=== PATIENT | female | born 1950 | race African-American/Black ===

== ENCOUNTER 2017-10-09 08:37 | Outpatient (CLI) | payer MEDICARE, MEDICAID | END 2017-10-09 08:38 | disposition home or self-care (01) | LOC: BICULT 08:37 | PROVIDERS: ATTEND Internal Medicine | DX: R10.9 Unspecified abdominal pain (principal); K76.89 Other specified diseases of liver; Z90.49 Acquired absence of other specified parts of digestive tract | CPT/HCPCS: 76700 ==

== ENCOUNTER 2018-01-16 09:00 | Outpatient (CLI) | payer MEDICARE, MEDICAID ==
[2018-01-16 10:30] LABS: Estimated GFR-MDRD - POC Greater than 90
[2018-01-16] MEDS ORDERED: ISOVUE-370 76%-LOCM 1 ML ONE (12:13)
== END 2018-01-16 09:01 | disposition home or self-care (01) ==
LOC: BICCT 09:00
PROVIDERS: ATTEND Internal Medicine
DX: R10.11 Right upper quadrant pain (principal); N90.89 Other specified noninflammatory disorders of vulva and perineum; N63.20 Unspecified lump in the left breast, unspecified quadrant; M54.5 Low back pain; K76.0 Fatty (change of) liver, not elsewhere classified; J44.9 Chronic obstructive pulmonary disease, unspecified; E11.9 Type 2 diabetes mellitus without complications; I10 Essential (primary) hypertension; E78.5 Hyperlipidemia, unspecified; M19.90 Unspecified osteoarthritis, unspecified site
CPT/HCPCS: 74177; 82565

== ENCOUNTER 2018-02-19 08:27 | Outpatient (CLI) | payer MEDICARE, MEDICAID | END 2018-02-19 08:28 | disposition home or self-care (01) | LOC: BICMAMMO 08:27 | PROVIDERS: ATTEND Internal Medicine | DX: R92.8 Other abnormal and inconclusive findings on diagnostic imaging of breast (principal) | CPT/HCPCS: 76642; 77066; G0279 ==

== ENCOUNTER 2018-03-14 09:38 | Outpatient (CLI) | payer MEDICARE, MEDICAID | END 2018-03-14 09:39 | disposition home or self-care (01) | LOC: BICRAD 09:38 | PROVIDERS: ATTEND Internal Medicine | DX: M54.5 Low back pain (principal); M47.896 Other spondylosis, lumbar region | CPT/HCPCS: 72100 ==

== ENCOUNTER 2018-12-24 06:48 | Outpatient (CLI) | payer MEDICARE, MEDICAID ==
--- NOTE | 2018-12-24 07:37 | ULT ---
Pelvic sonogram transabdominal and transvaginal imaging. HISTORY: Pelvic pain and bloating. Prior hysterectomy. FINDINGS: Urinary bladder is unremarkable. Uterus is surgically absent. Ovaries not visualized and ma y be surgically absent also. No solid or cystic masses. No free fluid. IMPRESSION: Status post hysterectomy. No significant abnormalities are demonstrated.
== END 2018-12-24 06:49 | disposition home or self-care (01) ==
LOC: BICULT 06:48
PROVIDERS: ATTEND Advanced Practice Midwife
DX: B37.9 Candidiasis, unspecified (principal); Z90.710 Acquired absence of both cervix and uterus
CPT/HCPCS: 76856

== ENCOUNTER 2019-03-19 15:36 | Outpatient (CLI) | payer MEDICARE, MEDICAID ==
--- NOTE | 2019-03-19 16:01 | MMO ---
Bilateral MAMMO Bilat Screen [facility]. CLINICAL HISTORY: Patient is 68 years old and is seen for screening. The patient has no family history of breast cancer. The patient has no personal history of cancer. The patient has a history of left Excisional Biopsy in December, - benign. VIEWS: The views performed were: bilateral craniocaudal with tomosynthesis and bilateral mediolateral oblique with tomosynthesis. FILMS COMPARED: The present examination has been compared to prior imaging studies performed at [facility] on 01/26/2015, 01/31/2016, 02/06/2017 and 02/19/2018. MAMMOGRAM FINDINGS: There are scattered fibroglandular densities. There are no suspicious masses, suspicious calcifications, or new areas of architectural distortion. IMPRESSION: THERE IS NO MAMMOGRAPHIC EVIDENCE OF MALIGNANCY. A ROUTINE FOLLOW-UP MAMMOGRAM IN 1 YEAR IS RECOMMENDED. THE RESULTS OF THIS EXAM WERE SENT TO THE PATIENT. ACR BI-RADS Category 1 - Negative MAMMOGRAPHY NOTE: 1. A negative mammogram report should not delay a biopsy if a dominant of clinically suspicious mass is present. 2. Approximately 10% to 15% of breast cancers are not detected by mammography. 3. Adenosis and dense breasts may obscure an underlying neoplasm. Reported by: SARA GILLESPIE MD Electonically Signed: [id number]
== END 2019-03-19 15:37 | disposition home or self-care (01) ==
LOC: BICMAMMO 15:36
PROVIDERS: ATTEND Internal Medicine
DX: Z12.31 Encounter for screening mammogram for malignant neoplasm of breast (principal)
CPT/HCPCS: 77063; 77067

== ENCOUNTER 2019-06-16 06:30 | Inpatient (IN) | payer MEDICARE, MEDICAID ==
[2019-06-16 07:16] LABS: Hemoglobin 11.8 g/dL (12.0-16.0); Mean Corpuscular HGB CONC 32.8 g/dL (32.0-36.0); Mean Corpuscular Hemoglobin 27.7 pg (27.0-31.0); Mean Corpuscular Volume 84.7 fL (78.0-98.0); Mean Platelet Volume 9.3 fL (7.4-10.4); Platelet Count 243 thou/uL (130-400); RBC Distribution Width 14.2 % (11.5-14.5); Red Blood Cell (RBC) Count 4.24 mill/uL (4.20-5.40); White Blood Cell (WBC) Count 28.2 thou/uL (4.8-10.8)
[2019-06-16] MEDS ORDERED: methylPREDNISolone Sod Succ/PF 125 MG/2 ML VIAL ONE (07:16)
[2019-06-16 07:25] LABS: ALT (SGPT) 16 U/L (8-55); AST (SGOT) 17 U/L (5-34); Albumin 3.8 g/dL (3.4-4.8); Alkaline Phosphatase 106 U/L (40-110); Anion Gap 20 mmol/L (10-20); BUN (Urea Nitrogen) 17 mg/dL (9.8-20.1); Bilirubin, Total 0.6 mg/dL (0.2-1.2); CK (CPK) 62 U/L (29-168); Calc. Creatinine Clearance 0 mL/min (70-130); Calcium 9.3 mg/dL (7.8-10.44); Carbon Dioxide 16 mmol/L (23-31); Chloride 98 mmol/L (98-107); Estimated GFR-MDRD 51; Globulin 4.1 g/dL (2.4-3.5); Glucose 380 mg/dL (80-115); Potassium 5.1 mmol/L (3.5-5.1); Protein, Total 7.9 g/dL (6.0-8.3); Sodium 129 mmol/L (136-145)
[2019-06-16] MEDS ORDERED: Ondansetron PF 4 MG/2 ML Vial ONE (07:35)
[2019-06-16] MEDS ORDERED: Morphine 4 MG/ML VIAL ONE (07:35)
[2019-06-16 07:39] LABS: Band 31 % (5-11); Eosinophils 2 % (0-10); Lymphocytes 6 % (21-51); MDiff Complete? YES; Metamyelocyte 1 % (0-0); Monocytes 3 % (0-10); Neutrophil 57 % (42-75); Platelet Morphology Comment Appears Adequate; Polychromasia SLIGHT = 2-3 cells (100X) (0-2/hpf)
--- NOTE | 2019-06-16 07:51 | RAD ---
RADIOGRAPH CHEST 1 VIEW: DATE: 06/16/2019 TIME: 7:13 AM HISTORY: 68-year-old female with hemoptysis, chest pain, and dyspnea COMPARISON: 10/10/2016 FINDINGS: New finding of right perihilar ill-defined opacity and associated subsegmental atelectasis at right m idlung zone. No cardiomegaly, pulmonary edema, or pneumothorax. IMPRESSION: Right perihilar mass or infiltrate associated with adjacent subsegmental atelectasis.
--- NOTE | 2019-06-16 08:02 | CT ---
CT ANGIOGRAM THORAX WITH CONTRAST: (CTA pulmonary angiogram) DATE: 06/16/2019 HISTORY: 68-year-old female with dyspnea, hemoptysis, and chest pain TECHNIQUE: IV injection of iodinated contrast. Scan acquisition timing attempted to coincide with iodinated contrast bolus reaching maximal density in pulmonary arteries. 3-D MIP reconstructions. FINDINGS: There is a moderately large consolidation in the anterior segment of the right upper lobe. Its inferi or base broadly abuts the minor fissure, and the consolidation does not involve the right middle lobe. Medially, it broadly abuts the right anterior hilum and mediastinum. Anterolaterally, it abuts the pleural surface. There is air bronchogram. No pulmonary thromboembolism is identified, although images are somewhat degraded. No thoracic aortic aneurysm or dissection. No cardiomegaly, pulmonary e natalie, or pneumothorax. Diffusely low hepatic attenuation represents fatty liver. No adrenal nodule. No splenomegaly. No mediastinal lymphadenopathy. IMPRESSION: 1) consolidation in anterior segment of right upper lobe consistent with pneumonia. 2) no pulmonary thromboemboli was identified. 3) hepatic steatosis. 4) recommend serial follow-up chest radiographs until complete resolution, to rule out possibility of any occult hilar neoplasm that may be responsible for the consolidation.
[2019-06-16] MEDS ORDERED: cefTRIAXone\\ROCEPHIN 1 GM VIAL ONE (08:08)
[2019-06-16] MEDS ORDERED: Azithromycin 500 MG VIAL ONE (08:08)
--- NOTE | 2019-06-16 09:02 | PDOC.FPRHP ---
- History of Present Illness Chief Complaint: Chest pain and SOB History of Present Illness: This is a 68 yo female with a pmh of COPD, HTN, DM2, HLD who presents to the ER with a cc of chest pain, SOB, and cough. She states that her symptoms started Saturday night but worsened Saturday. She reports the chest pain as sharp and localized to the right side of her chest with no radiation. She reports movement makes the pain worse and she has been unable to sleep on her right side due to the pain. Her shortness of breath did not respond to her Duoneb at home or her inhaler. This SOB is worsened by exertion. In regards to her cough, she reports yellow sputum and blood tinged sputum. She reports associated dizziness, lightheadedness. She denies fever, chills, nausea, vomiting, or diarrhea. ED Course: 1L of NS hanging (total of three ordered) Azithromycin 500mg Rocephin 1g Methylprednisolone 125mg Duoneb Morphine 4 mg Zofran 4mg - Allergies/Adverse Reactions Allergies Allergy/AdvReac Type Severity Reaction Status Date / Time Penicillins Allergy passed out Verified 12/30/13 15:52 - Home Medications Medication Instructions Recorded Confirmed Type Aspirin [Ecotrin Low Strength] 81 mg PO DAILY 12/30/13 06/16/19 History Fish Oil/DHA/EPA [Fish Oil 1,200 1 cap PO DAILY 12/30/13 06/16/19 History mg Fish Oil] Lisinopril [Zestril] 2.5 mg PO BID 12/30/13 06/16/19 History Metoprolol Tartrate 1 tab PO BID 12/30/13 06/16/19 History Montelukast Sodium 10 mg PO HS 12/30/13 06/16/19 History Ventolin HFA Inhaler [Proventil 1 puff INH Q4HR PRN 12/30/13 06/16/19 History HFA Inhaler] metFORMIN [Glucophage] 500 mg PO BID-WM 12/30/13 06/16/19 History Pantoprazole [Protonix] 40 mg PO DAILY 06/16/19 06/16/19 History glipiZIDE [Glipizide] 10 mg PO DAILY 06/16/19 06/16/19 History - History PMHx:COPD, HTN, DM2, HLD, hx of tobacco abuse and alcohol abuse PSHx: Hysterectomy, cholesystecomy, colonoscopy 3 months ago, repeat in 3 years FHx: CAD Social: 55 pack year history of smoking, quit 6 years ago, long history of alcohol abuse, quit 10 years ago - Review of Systems General: reports: fatigue. denies: fever/chills, weight/appetite/sleep changes , night sweats Eyes: denies: eye pain, vision changes ENT: denies: nasal congestion, rhinorrhea Respiratory: reports: cough, shortness of breath, exercise intolerance Cardiovascular: reports: chest pain. denies: palpitation, edema Gastrointestinal: denies: nausea, vomiting, diarrhea, constipation, abdominal pain Skin: denies: rashes, lesions Musculoskeletal: reports: pain (ribs on right chest), tenderness Neurological: denies: numbness, syncope, seizure Psychological: denies: anxiety, depression - Vital signs BP: 149/60 HR: 123 RR: 22 Tmax: 98.9 Pox: 96% on ra Wt: 98.8 kg - Physical Exam Constitutional: NAD, awake, alert and oriented, well developed HEENT: normocephalic and atraumatic, PERRLA, EOMI, conjunctiva clear, no scleral icterus, grossly normal vision, grossly normal hearing -HEENT: dry mucus membranes, poor dentition Neck: FROM, trachea midline, other (tenderness to palpation on the right side at the base of the jaw) Chest: no lesions, other (tender to palpation over ribs 4-6 on the right) Heart: RRR, normal S1/S2, no murmurs/rubs/gallops, pulses present Lungs: other (Wheezing globally, rhonchi on the right) Abdomen: soft, non-tender, bowel sounds present, no masses/distention Musculoskeletal: normal structure, ROM grossly normal Neurological: no focal deficit, normal sensation Skin: no rash/lesions, good turgor, capillary refill <2 seconds Heme/Lymphatic: no unusual bruising or bleeding, no purpura Psychiatric: normal mood and affect, good judgment and insight, intact recent and remote memory FMR H&P: Results - Labs Result Diagrams: 06/16/19 06:57 06/16/19 06:57 Lab results: WBC 28.2 thou/uL (4.8-10.8) H 06/16/19 06:57 Hgb 11.8 g/dL (12.0-16.0) L 06/16/19 06:57 Hct 35.9 % (36.0-47.0) L 06/16/19 06:57 MCV 84.7 fL (78.0-98.0) 06/16/19 06:57 Plt Count 243 thou/uL (130-400) 06/16/19 06:57 Band Neuts % (Manual) 31 % (5-11) H 06/16/19 06:57 Sodium 129 mmol/L (136-145) L 06/16/19 06:57 Potassium 5.1 mmol/L (3.5-5.1) 06/16/19 06:57 Chloride 98 mmol/L (98-107) 06/16/19 06:57 Carbon Dioxide 16 mmol/L (23-31) L 06/16/19 06:57 BUN 17 mg/dL (9.8-20.1) 06/16/19 06:57 Creatinine 1.25 mg/dL (0.6-1.1) H 06/16/19 06:57 Glucose 380 mg/dL (80-115) H 06/16/19 06:57 Lactic Acid 5.2 mmol/L (0.5-2.2) H* 06/16/19 08:03 Calcium 9.3 mg/dL (7.8-10.44) 06/16/19 06:57 Total Bilirubin 0.6 mg/dL (0.2-1.2) 06/16/19 06:57 AST 17 U/L (5-34) 06/16/19 06:57 ALT 16 U/L (8-55) 06/16/19 06:57 Alkaline Phosphatase 106 U/L (40-110) 06/16/19 06:57 Creatine Kinase 62 U/L (29-168) 06/16/19 06:57 B-Natriuretic Peptide 84.1 pg/mL (0-100) 06/16/19 06:57 Serum Total Protein 7.9 g/dL (6.0-8.3) 06/16/19 06:57 Albumin 3.8 g/dL (3.4-4.8) 06/16/19 06:57 - EKG Interpretation EKG: Sinus tachycardia, no st elevation or depression - Radiology Interpretation Chest x-ray Status: image reviewed by me, report reviewed by me (Right perihilar mass or infiltrate associated with adjacent subsegmental atelectasis) CT scan - chest Status: image reviewed by me, report reviewed by me (1) consolidation in anterior segment of right upper lobe consistent with pneumonia. 2) no pulmonary thromboemboli was identified. 3) hepatic steatosis. 4) recommend serial follow-up chest radiographs until complete resolution, to rule out possibility of any occult hilar neoplasm that may be responsible for the consolidation.) FMR H&P: A/P - Problem List (1) CAP (community acquired pneumonia) Current Visit: Yes Status: Acute Code(s): J18.9 - PNEUMONIA, UNSPECIFIED ORGANISM (2) Sepsis Current Visit: Yes Status: Acute Code(s): A41.9 - SEPSIS, UNSPECIFIED ORGANISM (3) BEN (acute kidney injury) Current Visit: Yes Status: Acute Code(s): N17.9 - ACUTE KIDNEY FAILURE, UNSPECIFIED - Plan This is a 68 yo female with a pmh of HTN, HLD, DM2, COPD who present with cough , SOB, and chest pain Sepsis 2/2 CAP -S/P 3 L NS in er -Azithromycin/rocephin in ER -Pending procal Anion gap metabolic acidosis -Likely from dehydration and lactic acidemia -Pending beta hydroxybutyrate, not likely DKA as BG is 243 -Receiving fluid resuscitation currently Lactic acidosis -5.2 in ER -Pending repeat in 2 hours -fluid resuscitation as above BEN vs CKD -No history of kidney problems but no recent labs, will follow with AM BMP -IVF hydration as above Chest pain, likely costrocondritis -Tender to palpation, naproxen added -Troponin negative x1 -chest tenderness coincides with pneumonia, possible pleurisy COPD -No oxygen requirement at home, not on oxygen in ER -Continue home meds and duonebs in hospital -Steroids given in ER, continue for 5 days total HTN -Continue home meds DM2 -Continue home meds HLD Code: Full Prophylaxis: lovenox Family: none at bedside Fluids: NS 150 ml/hr Diet: CC 2000 Kcal Disposition: home in 2-3 days PCP: Dr. Shivam Padilla MD Addendum - Attending - Attending Attestation Date/Time: 06/16/19 [id number] I personally evaluated the patient and discussed the management with Dr. Petersen. I agree with the History, Examination, Assessment and Plan documented above with any addition or exceptions noted below. Patient here with cough, shortness of breath, and chest pain. Her CT scan shows pulmonary infiltrate consistent with PNA. She has elevated WBC with neutrophilia , lactic acidosis with increased AG metabolic acidosis, and BEN. She will be admitted for CAP treatment, IV fluid resuscitation and respiratory support. She also has hyperglycemia without evidence of DKA, currently only on Metformin and DE [place]. Will need escalation of therapy. Patient sees Dr. Shivam Padilla, for which we do not admit for. Patient will be transferred to hospitalist group as she is [facility] patient.
[2019-06-16 09:54] LABS: Legionella Urinary Ag Negative (Negative)
[2019-06-16 10:50] VITALS: BMI 36.5
[2019-06-16] MEDS ORDERED: Dextrose 50% Abboject 50 ML SYRINGE SLOW IVP PRN (10:51)
[2019-06-16] MEDS ORDERED: Naproxen 500 MG TAB PO PRN (10:51)
[2019-06-16] MEDS ORDERED: Acetaminophen 325 MG TAB PO PRN (10:51)
[2019-06-16] MEDS ORDERED: PROVENTIL INHALER 6.7 G (200 INHALATIONS) INH PRN (10:51)
[2019-06-16] MEDS ORDERED: Dextrose 5% in Water 1,000 ML IV PRN (10:51)
[2019-06-16] MEDS: HumaLOG 300 UNITS/3 ML VIAL SC PRN ×3 (11:14→21:19)
[2019-06-16] MEDS: Sodium Chloride 0.9% 1,000 ML IV SCH ×2 (11:14→17:18)
--- NOTE | 2019-06-16 15:58 | PDOC.EVN ---
Event Note - Event Note Event Note: Discussed case with Ramiro Villanueva PA-C at 1555. This patient's PCP is Shivam Padilla MD who works for [employer]. He accepts the patient.
[2019-06-16 16:02] LABS: Lactic Acid 5.9 mmol/L (0.5-2.2)
[2019-06-16] MEDS: methylPREDNISolone Sod Succ 40 MG VIAL IVP SCH (17:15)
[2019-06-16] MEDS: metFORMIN 500 MG TAB PO SCH (17:15)
[2019-06-16] MEDS ORDERED: HumaLOG 300 UNITS/3 ML VIAL SC PRN (18:13)
[2019-06-16] MEDS: Montelukast Sodium 10 mg Tablet PO SCH (20:43)
[2019-06-16] MEDS: Metoprolol Tartrate 25 MG TAB PO SCH (20:43)
[2019-06-16] MEDS: Lisinopril 2.5 MG TAB PO SCH (20:43)
--- NOTE | 2019-06-16 21:11 | CON ---
DATE OF CONSULTATION: 06/16/2019 HISTORY OF PRESENT ILLNESS: Ms. Sadler is a pleasant 68-year-old female. She says she has been feeling poorly for 2 weeks. She has a grandson who has been sick who just came to live with her recently. Over the weekend, she says she just became dramatically worse with cough, purulent sputum, hemoptysis, and pleuritic chest discomfort. She subsequently was admitted with hypotension and tachycardia. CT scanning of her chest shows a dense alveolar infiltrate in her right upper lobe. PAST MEDICAL HISTORY: 1. Remarkable for being told she has COPD in the past. She has never seen a pulmonary physician. 2. Diabetes. 3. Hypertension. 4. Status post hysterectomy. 5. History of cholecystectomy. 6. History of polypectomy. FAMILY HISTORY: Positive for vascular disease. SOCIAL HISTORY: She smoked over a pack a day for 55 years. She quit smoking 6 years ago. She said she just got tired of it. She quit drinking 10 years ago. REVIEW OF SYSTEMS: Ten points review of systems completed, otherwise negative. PHYSICAL EXAMINATION: GENERAL: She is tachycardic, but in no distress. VITAL SIGNS: Blood pressure this evening is 163/78, respiratory rate is in the high teens to low 20s. HEENT: Pupils are equal. Sclerae anicteric. NECK: Supple. No lymphadenopathy. LUNGS: Remarkable for not having any crackles that I can hear in her upper lobe. HEART: Regular rhythm. S1 and S2 are normal. ABDOMEN: Soft and nontender. EXTREMITIES: Without clubbing, cyanosis, or edema. NEURO: Grossly nonfocal. LABORATORY DATA: White count 28.2, hemoglobin 11.8, platelets 243. Sodium 129, potassium 5.1, chloride 98, bicarb 16, BUN 17, creatinine 1.25. IMPRESSION: 1. Community-acquired pneumonia, likely postviral, most likely streptococcal. 2. Clinical sepsis. 3. Metabolic acidosis with an increased anion gap. 4. Acute on chronic kidney disease. 5. Diabetes. 6. Hypertension. She should continue with volume resuscitation. I have increased her dose of Rocephin. I have switched her steroids from p.o. to IV for now. We can kaia blood sugars with sliding scale. I do not feel that she needs to move to the critical care unit at this point, as she surprisingly looks fairly comfortable in spite of her tachycardia and her metabolic acidosis. I will follow the other physicians caring for. TIME SPENT: This is a 70-minute consult, with greater than 50% of the time spent on the unit coordinating care. Job ID: [id number] [email or web address]
[2019-06-17] MEDS: Sodium Chloride 0.9% 1,000 ML IV SCH ×4 (00:03→17:04)
[2019-06-17] MEDS: methylPREDNISolone Sod Succ 40 MG VIAL IVP SCH ×5 (00:03→23:13)
[2019-06-17] MEDS ORDERED: Vancomycin HCl 1 GM in Premix Bag 1 BAG IVPB SCH (00:30)
[2019-06-17 06:26] LABS: Anion Gap 14 mmol/L (10-20); BUN (Urea Nitrogen) 19 mg/dL (9.8-20.1); Calc. Creatinine Clearance 79 mL/min (70-130); Calcium 9.2 mg/dL (7.8-10.44); Carbon Dioxide 20 mmol/L (23-31); Chloride 106 mmol/L (98-107); Estimated GFR-MDRD 62; Glucose 354 mg/dL (80-115); Potassium 5.1 mmol/L (3.5-5.1); Sodium 135 mmol/L (136-145)
[2019-06-17 06:41] LABS: Hemoglobin 10.9 g/dL (12.0-16.0); MDiff Complete? YES; Mean Corpuscular HGB CONC 32.9 g/dL (32.0-36.0); Mean Corpuscular Hemoglobin 28.1 pg (27.0-31.0); Mean Corpuscular Volume 85.3 fL (78.0-98.0); Mean Platelet Volume 9.2 fL (7.4-10.4); Platelet Count 226 thou/uL (130-400); RBC Distribution Width 14.3 % (11.5-14.5); Red Blood Cell (RBC) Count 3.87 mill/uL (4.20-5.40); White Blood Cell (WBC) Count 29.1 thou/uL (4.8-10.8)
[2019-06-17 06:42] LABS: Band 24 % (5-11); Eosinophils 1 % (0-10); Lymphocytes 3 % (21-51); Monocytes 2 % (0-10); Neutrophil 70 % (42-75)
[2019-06-17] MEDS ORDERED: predniSONE 20 MG TAB PO SCH (08:00)
[2019-06-17] MEDS ORDERED: cefTRIAXone\\ROCEPHIN 1 GM in Sodium Chloride 0.9% 100 ML IVPB SCH (08:00)
[2019-06-17] MEDS: Enoxaparin Sodium 40 MG/0.4 ML SYRINGE SC SCH (08:04)
[2019-06-17] MEDS: Aspirin 81 mg Enteric Coated Tablet PO SCH (08:04)
[2019-06-17] MEDS: Pantoprazole 40 MG GRANULES PACKET PO SCH (08:04)
[2019-06-17] MEDS: Azithromycin 250 MG TAB PO SCH (08:05)
[2019-06-17] MEDS: glipiZIDE 10 MG TAB PO SCH (08:05)
[2019-06-17] MEDS: metFORMIN 500 MG TAB PO SCH ×2 (08:05→17:05)
[2019-06-17] MEDS: Metoprolol Tartrate 25 MG TAB PO SCH ×2 (08:06→20:40)
[2019-06-17] MEDS: Lisinopril 2.5 MG TAB PO SCH ×2 (08:06→20:39)
[2019-06-17] MEDS: cefTRIAXone\\ROCEPHIN 2 GM in Sodium Chloride 0.9% 100 ML IVPB SCH (08:10)
[2019-06-17] MEDS: Fish Oil 1,000 MG CAP PO SCH (08:12)
[2019-06-17 08:52] LABS: INR-International Normal Ratio 1.3; Lactic Acid 1.4 mmol/L (0.5-2.2); PTT 30.6 SEC (22.9-36.1)
[2019-06-17 08:55] LABS: Magnesium 1.9 mg/dL (1.6-2.6); Phosphorus 2.5 mg/dL (2.3-4.7)
[2019-06-17 09:39] LABS: Hemoglobin A1c 9.8 % (4.0-6.0)
[2019-06-17] MEDS ORDERED: NPH, Human Insulin Isophane 300 UNIT/3 ML VIAL SC SCH ×2 (09:45→22:30)
[2019-06-17] MEDS: HumaLOG 300 UNITS/3 ML VIAL SC PRN ×3 (11:02→20:43)
[2019-06-17] MEDS ORDERED: Polyethylene Glycol 3350 17 GM Packet PO PRN (15:38)
[2019-06-17] MEDS: Senokot S 8.6-50 MG TAB PO SCH (20:40)
[2019-06-17] MEDS: Montelukast Sodium 10 mg Tablet PO SCH (20:40)
--- NOTE | 2019-06-17 22:29 | PDOC.HOSPP ---
- Subjective Encounter Date: 06/17/19 Encounter Time: 16:00 Subjective: Patient seen and examined for Sepsis. Feels better. Dry cough. No new complaints. No overnight events - Objective Vital Signs & Weight: Vital Signs (12 hours) Temp Pulse Resp BP BP Pulse Ox 06/17/19 20:39 98.1 F 98 20 156/81 H 156/81 H 96 06/17/19 20:00 96 06/17/19 19:43 98.1 F 06/17/19 15:25 97.2 F L 06/17/19 14:59 98 18 99 06/17/19 11:20 97.8 F Weight Weight 219 lb 5.759 oz Most Recent Monitor Data Heart Rate from ECG 102 NIBP 158/77 NIBP BP-Mean 104 Respiration from ECG 17 SpO2 95 I&O: 06/16/19 06/17/19 06/18/19 06:59 06:59 06:59 Intake Total 4231 2086 Output Total 2950 1500 Balance 1281 586 Result Diagrams: 06/17/19 05:26 06/17/19 05:26 Additional Labs: Accuchecks 06/17/19 06/17/19 06/17/19 20:03 16:41 06:27 POC Glucose 365 H 366 H 315 H 06/16/19 17:14 POC Glucose 407 H Radiology Reviewed by me: Yes (CTA - Right sided Pneumonia) EKG Reviewed by me: Yes (Tele SR) Hospitalist ROS - Review of Systems Cardiovascular: denies: chest pain, palpitations, orthopnea, paroxysmal noc. dyspnea, edema, light headedness, other Gastrointestinal: denies: nausea, vomiting, abdominal pain, diarrhea, constipation, melena, hematochezia, other - Medication Medications: Active Medications Generic Name Dose Route Start Last Admin Trade Name Freq PRN Reason Stop Dose Admin Albuterol/Ipratropium 3 ml 06/16/19 10:51 06/16/19 14:26 Duoneb NEB 3 ml [id number] PRN Administration SOB &/or Wheezing Aspirin 81 mg 06/17/19 09:00 06/17/19 08:04 Ecotrin PO 81 mg DAILY MYLES Administration Azithromycin 250 mg 06/17/19 09:00 06/17/19 08:05 Zithromax PO 06/21/19 09:01 250 mg DAILY MYLES Administration Enoxaparin Sodium 40 mg 06/17/19 09:00 06/17/19 08:04 Lovenox SC 40 mg 0900 MYLES Administration Fish Oil 1,000 mg 06/17/19 09:00 06/17/19 08:12 Fish Oil PO 1,000 mg DAILY MYLES Administration Glipizide 10 mg 06/17/19 09:00 06/17/19 08:05 Glucotrol PO 10 mg DAILY MYLES Administration Ceftriaxone Sodium 2 gm/ 100 mls @ 200 mls/hr 06/17/19 08:00 06/17/19 08:10 Sodium Chloride IVPB 100 mls 0800 MYLES Administration Sodium Chloride 1,000 mls @ 70 mls/hr 06/17/19 15:55 06/17/19 17:04 Normal Saline 0.9% IV 1,000 mls .[id number] MYLES Administration Insulin Human Lispro 0 units 06/16/19 10:51 06/17/19 20:43 Humalog SC 5 unit .BEDTIME SLIDING SC PRN Administration Bedtime Correctional Scale Insulin Human Lispro 0 units 06/17/19 07:56 06/17/19 17:07 Humalog SC 13 unit .AGGRESSIVE SLIDING PRN Administration Aggressive Correctional Scale Lisinopril 2.5 mg 06/16/19 21:00 06/17/19 20:39 Zestril PO 2.5 mg BID MYLES Administration Metformin HCl 500 mg 06/16/19 17:00 06/17/19 17:05 Glucophage PO 500 mg BID-WM MYLES Administration Methylprednisolone Sodium Succinate 20 mg 06/16/19 18:00 06/17/19 17:06 Solu-Medrol IVP 20 mg Q6HR MYLES Administration Metoprolol Tartrate 25 mg 06/16/19 21:00 06/17/19 20:40 Lopressor PO 25 mg BID MYLES Administration Montelukast Sodium 10 mg 06/16/19 21:00 06/17/19 20:40 Singulair PO 10 mg HS MYLES Administration Pantoprazole Sodium 40 mg 06/17/19 09:00 06/17/19 08:04 Protonix PO 40 mg DAILY MYLES Administration Senna/Docusate Sodium 1 tab 06/17/19 21:00 06/17/19 20:40 Senokot S PO 1 tab BID MYLES Administration Sodium Chloride 10 ml 06/17/19 09:00 06/17/19 20:40 Flush - Normal Saline IVF 10 ml Q12HR MYLES Administration - Exam General Appearance: NAD Neck: supple, no JVD Heart: RRR, no murmur, no gallops, no rubs Respiratory: normal chest expansion, no tachypnea, rales, rhonchi Gastrointestinal: soft, non-tender, non-distended, normal bowel sounds Extremities: no edema Neurological: no new deficit Psychiatric: normal affect, A&O x 3 Hosp A/P - Plan Severe Sepsis due to Strep Pneumonia with bacteremia Lactic acidosis DM2 with hyperglycemia due to steroids HTN BEN on CKD 2 Hyponatremia Obesity BMI 36.5 PLAN: Cont Ceftriaxone On IV Steroids Add NPH Cont sliding scale AM labs Transfer to medical Full code DPOA - family
[2019-06-18] MEDS: HumaLOG 300 UNITS/3 ML VIAL SC PRN ×5 (02:57→20:15)
[2019-06-18] MEDS: methylPREDNISolone Sod Succ 40 MG VIAL IVP SCH (05:14)
[2019-06-18] MEDS: Sodium Chloride 0.9% 1,000 ML IV SCH (05:15)
[2019-06-18 06:48] LABS: Hemoglobin 10.8 g/dL (12.0-16.0); Mean Corpuscular HGB CONC 32.4 g/dL (32.0-36.0); Mean Corpuscular Hemoglobin 27.5 pg (27.0-31.0); Platelet Count 256 thou/uL (130-400); RBC Distribution Width 14.3 % (11.5-14.5); Red Blood Cell (RBC) Count 3.93 mill/uL (4.20-5.40); White Blood Cell (WBC) Count 25.3 thou/uL (4.8-10.8)
[2019-06-18 07:07] LABS: ALT (SGPT) 14 U/L (8-55); AST (SGOT) 9 U/L (5-34); Albumin 3.4 g/dL (3.4-4.8); Alkaline Phosphatase 105 U/L (40-110); Anion Gap 13 mmol/L (10-20); BUN (Urea Nitrogen) 23 mg/dL (9.8-20.1); Bilirubin, Total 0.2 mg/dL (0.2-1.2); Calc. Creatinine Clearance 89 mL/min (70-130); Calcium 9.4 mg/dL (7.8-10.44); Carbon Dioxide 19 mmol/L (23-31); Chloride 106 mmol/L (98-107); Estimated GFR-MDRD 71; Globulin 3.9 g/dL (2.4-3.5); Glucose 305 mg/dL (80-115); Magnesium 1.9 mg/dL (1.6-2.6); Phosphorus 2.2 mg/dL (2.3-4.7); Potassium 4.6 mmol/L (3.5-5.1); Protein, Total 7.3 g/dL (6.0-8.3); Sodium 133 mmol/L (136-145)
[2019-06-18 07:48] LABS: Band 9 % (5-11); Lymphocytes 10 % (21-51); MDiff Complete? YES; Monocytes 5 % (0-10); Neutrophil 76 % (42-75); Polychromasia SLIGHT = 2-3 cells (100X) (0-2/hpf)
[2019-06-18] MEDS: Lisinopril 2.5 MG TAB PO SCH ×2 (08:52→20:12)
[2019-06-18] MEDS: Metoprolol Tartrate 25 MG TAB PO SCH ×2 (08:52→20:12)
[2019-06-18] MEDS: Azithromycin 250 MG TAB PO SCH (08:52)
[2019-06-18] MEDS: glipiZIDE 10 MG TAB PO SCH (08:52)
[2019-06-18] MEDS: Fish Oil 1,000 MG CAP PO SCH (08:52)
[2019-06-18] MEDS: metFORMIN 500 MG TAB PO SCH ×2 (08:52→17:19)
[2019-06-18] MEDS: Senokot S 8.6-50 MG TAB PO SCH ×2 (08:52→20:12)
[2019-06-18] MEDS: Aspirin 81 mg Enteric Coated Tablet PO SCH (08:52)
[2019-06-18] MEDS: Saccharomyces boulardii 250 MG CAP PO SCH (08:52)
[2019-06-18] MEDS: cefTRIAXone\\ROCEPHIN 2 GM in Sodium Chloride 0.9% 100 ML IVPB SCH (08:53)
[2019-06-18] MEDS: Pantoprazole 40 MG GRANULES PACKET PO SCH (08:54)
[2019-06-18] MEDS: Enoxaparin Sodium 40 MG/0.4 ML SYRINGE SC SCH (08:54)
[2019-06-18] MEDS ORDERED: NPH, Human Insulin Isophane 300 UNIT/3 ML VIAL SC SCH (09:00)
--- NOTE | 2019-06-18 09:44 | PRG ---
DATE OF SERVICE: 06/17/2019 SUBJECTIVE: Lissette Sadler said her pleuritic chest pain is better but not gone. Her hemodynamics have stabilized with blood pressure being in the 120s. OBJECTIVE: LUNGS: Clear. HEART: Regular rhythm. ABDOMEN: Soft. Blood cultures were positive for strep. IMPRESSION: Strep pneumonia with sepsis, clinically improving. She can be transferred to a medical bed in my opinion. Job ID: [id number]
--- NOTE | 2019-06-18 10:14 | PRG ---
DATE OF SERVICE: 06/18/2019 SUBJECTIVE: The patient is seen and examined at the bedside. She is feeling significantly better. She still has quite a bit of cough, but her appetite is fair, and she is able to get up and ambulate. OBJECTIVE: VITAL SIGNS: Blood pressure is 154/80, pulse is 91, temperature is 98.5, respirations 18, O2 saturation is 93% on room air. HEENT: Head is atraumatic and normocephalic. Eyes are PERRLA. Sclerae are nonicteric. Oral mucosa is moist. NECK: Supple. LUNGS: Few rales bilaterally. HEART: S1 and S2 are normal. ABDOMEN: Soft, nontender, and nondistended. EXTREMITIES: No clubbing, cyanosis, or edema. NEUROLOGIC: She is alert and oriented x4. There are no any motor or sensory deficits. LABORATORY DATA: Showed a white count of 25.3, hemoglobin 10.8, hematocrit 33.4, platelet count is 256,000. Sodium of 133, potassium 4.6, chloride 106, CO2 of 19, BUN 23, creatinine 0.94. Glycemia is ranging from 283 to 365. Phosphorus 2.2. Globulin 3.9. Microbiology, nothing new. IMPRESSION: 1. Severe sepsis due to Streptococcus pneumoniae with bacteremia. 2. Lactic acidosis. 3. Diabetes mellitus, type 2, worsened secondary to steroids. 4. Hypertension. 5. Acute kidney injury on chronic kidney disease, stage 2. 6. Hyponatremia. 7. Obesity. PLAN: We are going to continue her IV ceftriaxone. We are going to cut back on her steroids and switch her to prednisone. Long-acting insulin was added yesterday. We will check her white count tomorrow morning, and I anticipate the discharge in the next 24 to 48 hours. Job ID: [id number]
[2019-06-18] MEDS: NPH, Human Insulin Isophane 300 UNIT/3 ML VIAL SC SCH ×2 (11:00→20:13)
--- NOTE | 2019-06-18 14:04 | PRG ---
DATE OF SERVICE: 06/18/2019 SUBJECTIVE: Lissette Sadler says she is feeling better. Her pleurisy for all practical purposes are gone. OBJECTIVE: VITAL SIGNS: She is afebrile. Heart rate 92, respiratory rate 18, 02 sats 95% on room air, blood pressure 145/80. LUNGS: Clear. HEART: Regular rhythm. LABORATORY DATA: White count 25.3, sodium 133, potassium 4.6, chloride 106, bicarb 19, BUN 23, creatinine 0.94, glucose . IMPRESSION: 1. . 2. Leukocytosis secondary to pneumonia . Her Zithromax can be discontinued, especially since the organism is not sensitive to , steroid dosing can be simplified. 3. She can be taken off IV antibiotics and switched to a p.o. cephalosporin. 4. She may be discharged tomorrow. I will be happy to see her in followup and check a chest radiograph . Job ID: [id number]
[2019-06-18] MEDS: Montelukast Sodium 10 mg Tablet PO SCH (20:12)
[2019-06-19] MEDS: HumaLOG 300 UNITS/3 ML VIAL SC PRN ×4 (05:53→20:30)
[2019-06-19] MEDS: Saccharomyces boulardii 250 MG CAP PO SCH (08:26)
[2019-06-19] MEDS: Metoprolol Tartrate 25 MG TAB PO SCH ×2 (08:27→20:28)
[2019-06-19] MEDS: glipiZIDE 10 MG TAB PO SCH (08:27)
[2019-06-19] MEDS: predniSONE 20 MG TAB PO SCH (08:27)
[2019-06-19] MEDS: Lisinopril 2.5 MG TAB PO SCH ×2 (08:27→20:28)
[2019-06-19] MEDS: Fish Oil 1,000 MG CAP PO SCH (08:27)
[2019-06-19] MEDS: Aspirin 81 mg Enteric Coated Tablet PO SCH (08:27)
[2019-06-19] MEDS: metFORMIN 500 MG TAB PO SCH ×2 (08:27→17:58)
[2019-06-19] MEDS: NPH, Human Insulin Isophane 300 UNIT/3 ML VIAL SC SCH ×2 (08:29→20:29)
[2019-06-19] MEDS: Enoxaparin Sodium 40 MG/0.4 ML SYRINGE SC SCH (08:29)
[2019-06-19] MEDS: Pantoprazole 40 MG GRANULES PACKET PO SCH (08:30)
[2019-06-19] MEDS: Senokot S 8.6-50 MG TAB PO SCH ×2 (08:30→20:29)
[2019-06-19 09:17] LABS: Hemoglobin 12.8 g/dL (12.0-16.0); Mean Corpuscular HGB CONC 32.5 g/dL (32.0-36.0); Mean Corpuscular Hemoglobin 27.6 pg (27.0-31.0); Mean Corpuscular Volume 84.7 fL (78.0-98.0); Mean Platelet Volume 9.4 fL (7.4-10.4); Platelet Count 264 thou/uL (130-400); RBC Distribution Width 14.3 % (11.5-14.5); Red Blood Cell (RBC) Count 4.64 mill/uL (4.20-5.40); White Blood Cell (WBC) Count 18.4 thou/uL (4.8-10.8)
[2019-06-19] MEDS: Cefdinir 300 MG CAP PO SCH ×2 (09:25→20:28)
--- NOTE | 2019-06-19 09:38 | PRG ---
DATE OF SERVICE: 06/19/2019 SUBJECTIVE: Lissette Sadler is feeling well. OBJECTIVE: VITAL SIGNS: She is on room air now. Oximetry is in the low to mid 90s on room air. She is afebrile. Heart rate is 99 and blood pressure 139/85. LUNGS: Clear. HEART: Regular rhythm. ABDOMEN: Soft. IMPRESSION: Pneumonia with bacteremia, secondary to streptococcal pneumonia. PLAN: Switch to Omnicef. Discharge home with 14 days total of antibiotics. She will follow up with me in 1 month for chest radiograph. Job ID: [id number]
[2019-06-19 09:45] LABS: Band 4 % (5-11); Eosinophils 2 % (0-10); Lymphocytes 36 % (21-51); MDiff Complete? YES; Metamyelocyte 1 % (0-0); Monocytes 4 % (0-10); Neutrophil 53 % (42-75); RBC Morphology Normal
--- NOTE | 2019-06-19 12:46 | PRG ---
DATE OF SERVICE: 06/19/2019 SUBJECTIVE: The patient is seen and examined at the bedside. She feels better. She tolerates food. She started having some productive cough. OBJECTIVE: VITAL SIGNS: Blood pressure is 150/84, pulse 99, temperature is 97.8, respirations 20, and O2 saturation is 92% on room air. HEENT: Head is atraumatic and normocephalic. Eyes are PERRLA. Sclerae are nonicteric. Oral mucosa is moist. NECK: Supple. LUNGS: Few rales bilaterally at both bases. HEART: S1 and S2 normal. ABDOMEN: Soft and nontender. EXTREMITIES: No clubbing, cyanosis, or edema. NEUROLOGIC: Intact. LABORATORY DATA: White count of 18.4, hemoglobin 12.8, hematocrit 39.3, platelet count 264,000. Glycemia is ranging from 157 to 293. IMPRESSION: 1. Severe sepsis due to streptococcal pneumonia with streptococcal bacteremia. 2. Lactic acidosis, resolved. 3. Diabetes mellitus type 2, worsen secondary to steroids. 4. Hypertension. 5. Acute kidney injury on chronic kidney disease, stage 2. 6. Hyponatremia, improved. 7. Obesity. PLAN: Plan to give her a less prednisone today. She had first dose of 40 mg. She was seen by wharf labourer, who recommends follow up with him and x-ray prior to the followup visit. I think her white count is still elevated at 18,000 with 2/2 blood cultures positive. I think it is more appropriate to keep her additional 24 hours and then discharge her on oral Augmentin twice a day for 2 weeks. Job ID: [id number]
[2019-06-19] MEDS: cefTRIAXone\\ROCEPHIN 2 GM in Sodium Chloride 0.9% 100 ML IVPB SCH (19:06)
[2019-06-19] MEDS: Montelukast Sodium 10 mg Tablet PO SCH (20:29)
[2019-06-20 06:27] LABS: Band 3 % (5-11); Hemoglobin 11.5 g/dL (12.0-16.0); Lymphocytes 41 % (21-51); MDiff Complete? YES; Mean Corpuscular HGB CONC 32.7 g/dL (32.0-36.0); Mean Corpuscular Hemoglobin 27.3 pg (27.0-31.0); Mean Corpuscular Volume 83.5 fL (78.0-98.0); Mean Platelet Volume 8.8 fL (7.4-10.4); Metamyelocyte 2 % (0-0); Monocytes 13 % (0-10); Myelocyte 1 % (0-0); Neutrophil 40 % (42-75); Nucleated RBC 1 % (0); Platelet Count 287 thou/uL (130-400); Platelet Morphology Comment Appears Adequate; RBC Distribution Width 13.9 % (11.5-14.5); RBC Morphology Normal; Red Blood Cell (RBC) Count 4.21 mill/uL (4.20-5.40); White Blood Cell (WBC) Count 18.7 thou/uL (4.8-10.8)
[2019-06-20 08:13] VITALS: BP 154/80; TEMP 98.4
[2019-06-20] MEDS: Cefdinir 300 MG CAP PO SCH (08:19)
[2019-06-20] MEDS: Lisinopril 2.5 MG TAB PO SCH (08:19)
[2019-06-20] MEDS: Aspirin 81 mg Enteric Coated Tablet PO SCH (08:19)
[2019-06-20] MEDS: glipiZIDE 10 MG TAB PO SCH (08:19)
[2019-06-20] MEDS: metFORMIN 500 MG TAB PO SCH (08:20)
[2019-06-20] MEDS: Fish Oil 1,000 MG CAP PO SCH (08:20)
[2019-06-20] MEDS: Enoxaparin Sodium 40 MG/0.4 ML SYRINGE SC SCH (08:20)
[2019-06-20] MEDS: NPH, Human Insulin Isophane 300 UNIT/3 ML VIAL SC SCH (08:20)
[2019-06-20] MEDS: Senokot S 8.6-50 MG TAB PO SCH (08:20)
[2019-06-20] MEDS: predniSONE 20 MG TAB PO SCH (08:20)
[2019-06-20] MEDS: Saccharomyces boulardii 250 MG CAP PO SCH (08:20)
[2019-06-20] MEDS: Pantoprazole 40 MG GRANULES PACKET PO SCH (08:20)
[2019-06-20] MEDS: Metoprolol Tartrate 25 MG TAB PO SCH (08:20)
--- NOTE | 2019-06-20 09:53 | DIS ---
DATE OF ADMISSION: 06/16/2019 DATE OF DISCHARGE: 06/20/2019 FINAL DIAGNOSES AT THE TIME OF DISCHARGE: 1. Severe sepsis due to Streptococcal pneumonia with Streptococcal bacteremia. 2. Streptococcal bacteremia. 3. Streptococcal pneumonia. 4. Lactic acidosis, resolved. 5. Diabetes mellitus type 2, worsening on steroids. 6. Hypertension. 7. Acute kidney injury on chronic kidney disease stage 2, improved. 8. Hyponatremia, improved. 9. Obesity. CONSULTANTS: Dr. David Freire, Pulmonary Service. HOSPITAL COURSE: The patient was a 68-year-old female with past medical history of COPD, hypertension, diabetes mellitus type 2, hyperlipidemia, who presented to the ER with acute onset of chest pain, shortness of breath and cough. This gradually got worse and her shortness of breath did not respond to her DuoNebs at home and inhaler. She had productive yellow sputum, cough with blood tinged sputum. She reported some dizziness, lightheadedness. She denied any fever, chills, nausea, vomiting, or diarrhea. In the emergency room, evaluation showed white count of 28.2, hemoglobin of 11.8, hematocrit 35.9, platelet count was 243,000. Chemistry showed sodium of 129, potassium 5.1, chloride 98, CO2 16, BUN 17, creatinine 1.25, and glucose was 380. The rest of chemistry was within normal limits. BNP was 84.1. EKG shows sinus tachycardia. No ST elevation or depression. Chest x-ray showed right perihilar mass or infiltrate associated with adjacent subsegmental atelectasis. CT scan of the chest was done and did show consolidation in anterior segment of the right upper lobe consistent with pneumonia with no pulmonary thromboemboli. There was hepatic steatosis. The patient was diagnosed with community-acquired pneumonia and sepsis, got admitted to the hospital, started on IV fluids and antibiotic. Cultures on her blood came back positive for Streptococcus pneumoniae, 2/2, which was sensitive to Bactrim, ceftriaxone, cefotaxime and levofloxacin. The patient was seen by director of knowledge management, Dr. Freire, who recommended a volume resuscitation and continuation of her Rocephin. Her IV steroids which she was started on was switched to p.o. Her glycemia was elevated and she required additional doses of long-acting insulin daily. Clinically she improved quickly despite of having tachycardia and metabolic acidosis, but this part got corrected with time. She was switched to oral antibiotic and oral steroids. Currently, she is on Omnicef 300 mg twice a day and she is discharged home in good condition. Her white count is down to 17,000, and she was cleared by director of knowledge management to be discharged home. OTHER DISCHARGE MEDICATIONS: 1. Mucinex DM one tablet twice a day. 2. Florastor 250 mg once a day. 3. Tylenol p.r.n. 650 q.4 hours as needed. 4. Montelukast 10 mg at bedtime. 5. Lisinopril 2.5 mg twice a day. 6. Prednisone 20 mg daily for the next for the 4 days, then 10 mg daily for 4 days after that. 7. Metoprolol 1 tablet twice a day. 8. Metformin 1000 mg twice a day. 9. Aspirin 81 mg once a day. 10. Glipizide 10 mg daily. 11. Ventolin 1 puff q.4 hours p.r.n. as needed. 12. Fish oil. FOLLOWUP: She is going to follow up with her primary care physician in 1 week and the prescription will be sent to her pharmacy. Discharge time is less than 30 minutes. Job ID: [id number]
[2019-06-20] MEDS: HumaLOG 300 UNITS/3 ML VIAL SC PRN (11:57)
--- NOTE | 2019-06-20 14:39 | EKG ---
Test Reason : Blood Pressure : / mmHG Vent. Rate : 138 BPM Atrial Rate : 138 BPM P-R Int : 122 ms QRS Dur : 084 ms QT Int : 290 ms P-R-T Axes : 055 022 056 degrees QTc Int : 439 ms Sinus tachycardia Possible Left atrial enlargement Borderline ECG Confirmed by COTY URIBE DO ([id number]), mapping editor CLAUDE MADDEN ([id number] on 06/20/2019 2:38:50 PM Referred By: Confirmed By:COTY URIBE DO
== END 2019-06-20 13:13 | disposition home or self-care (01) | DRG 871 ==
LOC: ERS 06:30 → IMCU/EMU 10:16 → T4-A 06-17 21:58
PROVIDERS: ADMIT Family Medicine; ATTEND Family Medicine
DX: A40.3 Sepsis due to Streptococcus pneumoniae (principal); J15.4 Pneumonia due to other streptococci; R65.20 Severe sepsis without septic shock; N17.9 Acute kidney failure, unspecified; E87.1 Hypo-osmolality and hyponatremia; J44.9 Chronic obstructive pulmonary disease, unspecified; E78.5 Hyperlipidemia, unspecified; I12.9 Hypertensive chronic kidney disease with stage 1 through stage 4 chronic kidney disease, or unspecified chronic kidney disease; N18.2 Chronic kidney disease, stage 2 (mild); E66.9 Obesity, unspecified; E09.9 Drug or chemical induced diabetes mellitus without complications; T38.0X5A Adverse effect of glucocorticoids and synthetic analogues, initial encounter; Z88.0 Allergy status to penicillin; Z79.82 Long term (current) use of aspirin; Z87.891 Personal history of nicotine dependence; Z90.710 Acquired absence of both cervix and uterus; Z90.49 Acquired absence of other specified parts of digestive tract; Z68.36 Body mass index [BMI] 36.0-36.9, adult
CPT/HCPCS: 36415; 36416; 71045; 71275; 80048; 80053; 82010; 82550; 83036; 83605; 83735; 83880; 84100; 84145; 84484; 85007; 85025; 85027; 85610; 85730; 87040; 87077; 87149; 87186; 87899; 93005; 94640; 96365; 96367; 96375; J0456; J0696; J1650; J1815; J2270; J2405; J2920; J2930; J3370; J3490; J7512; J7620

== ENCOUNTER 2019-09-16 10:15 | Outpatient (CLI) | payer MEDICARE, MEDICAID ==
--- NOTE | 2019-09-16 10:31 | RAD ---
Exam:3 views right foot HISTORY: Pain. Symptoms x2 days. Evaluate for fracture. COMPARISON: None FINDINGS: Lisfranc alignment is maintained. Joint spaces are preserved. No fracture, cortical irregul arity or periosteal reaction. Hypertrophy of the calcaneus at the Achilles tendon insertion site. Limited evaluation the second through fifth digit due to persistent flexion. No significant soft tiss ue swelling along the dorsum of the foot. IMPRESSION: 1. No fracture.
== END 2019-09-16 10:16 | disposition home or self-care (01) ==
LOC: BICRAD 10:15
PROVIDERS: ATTEND Internal Medicine
DX: M79.671 Pain in right foot (principal)

== ENCOUNTER 2020-03-22 15:40 | Outpatient (CLI) | payer MEDICARE, MEDICAID ==
--- NOTE | 2020-03-22 15:56 | MMO ---
Bilateral MAMMO Bilat Screen [facility]. CLINICAL HISTORY: Patient is 69 years old and is seen for screening. The patient has no family history of breast cancer. The patient has no personal history of cancer. The patient has a history of left Excisional Biopsy in December, - benign. VIEWS: The views performed were: bilateral craniocaudal with tomosynthesis and bilateral mediolateral oblique with tomosynthesis. FILMS COMPARED: The present examination has been compared to prior imaging studies performed at [facility] on 01/31/2016, 02/06/2017, 02/19/2018 and 03/19/2019. This study has been interpreted with the assistance of computer-aided detection. MAMMOGRAM FINDINGS: There are scattered fibroglandular densities. There are no suspicious masses, suspicious calcifications, or new areas of architectural distortion. IMPRESSION: THERE IS NO MAMMOGRAPHIC EVIDENCE OF MALIGNANCY. A ROUTINE FOLLOW-UP MAMMOGRAM IN 1 YEAR IS RECOMMENDED. THE RESULTS OF THIS EXAM WERE SENT TO THE PATIENT. ACR BI-RADS Category 1 - Negative MAMMOGRAPHY NOTE: 1. A negative mammogram report should not delay a biopsy if a dominant of clinically suspicious mass is present. 2. Approximately 10% to 15% of breast cancers are not detected by mammography. 3. Adenosis and dense breasts may obscure an underlying neoplasm. Reported by: STEVE SANTOS MD Electonically Signed: [id number]
== END 2020-03-22 15:41 | disposition home or self-care (01) ==
LOC: BICMAMMO 15:40
PROVIDERS: ATTEND Internal Medicine
DX: Z12.31 Encounter for screening mammogram for malignant neoplasm of breast (principal); Z91.89 Other specified personal risk factors, not elsewhere classified
CPT/HCPCS: 77063; 77067

== ENCOUNTER 2021-03-24 13:31 | Outpatient (CLI) | payer MEDICARE, MEDICAID | END 2021-03-24 13:32 | disposition home or self-care (01) | LOC: BICMAMMO 13:31 | PROVIDERS: ATTEND Nurse Practitioner Family | DX: Z12.31 Encounter for screening mammogram for malignant neoplasm of breast (principal); Z91.89 Other specified personal risk factors, not elsewhere classified | CPT/HCPCS: 77063; 77067 ==

== ENCOUNTER 2022-03-26 14:52 | Outpatient (CLI) | payer OTHER, MEDICAID | END 2022-03-26 14:53 | disposition home or self-care (01) | LOC: BICMAMMO 14:52 | PROVIDERS: ATTEND Nurse Practitioner Family | DX: Z12.31 Encounter for screening mammogram for malignant neoplasm of breast (principal); Z80.3 Family history of malignant neoplasm of breast; Z91.89 Other specified personal risk factors, not elsewhere classified | CPT/HCPCS: 77063; 77067 ==

== ENCOUNTER 2022-08-06 12:17 | Outpatient (CLI) | payer OTHER, MEDICAID | END 2022-08-06 12:18 | disposition home or self-care (01) | LOC: BICULT 12:17 | PROVIDERS: ATTEND Student in an Organized Health Care Education/Training Program | DX: R10.13 Epigastric pain (principal); K76.0 Fatty (change of) liver, not elsewhere classified | CPT/HCPCS: 76700 ==

== ENCOUNTER 2022-10-03 07:51 | Outpatient (CLI) | payer OTHER, MEDICAID ==
[2022-10-03] MEDS ORDERED: Iopamidol-370 76% 500 ML 1 ML ONE (09:12)
== END 2022-10-03 07:52 | disposition home or self-care (01) ==
LOC: BICCT 07:51
PROVIDERS: ATTEND Student in an Organized Health Care Education/Training Program
DX: R10.13 Epigastric pain (principal); K76.0 Fatty (change of) liver, not elsewhere classified; K63.89 Other specified diseases of intestine
CPT/HCPCS: 74178; 82565

== ENCOUNTER 2023-07-29 10:52 | Outpatient (CLI) | payer OTHER, MEDICAID | END 2023-07-29 10:53 | disposition home or self-care (01) | LOC: RAD 10:52 | PROVIDERS: ATTEND Internal Medicine Critical Care Medicine | DX: R06.00 Dyspnea, unspecified (principal) | CPT/HCPCS: 71046 ==

== ENCOUNTER 2024-07-27 09:21 | Outpatient (CLI) | payer OTHER, MEDICAID | END 2024-07-27 09:22 | disposition home or self-care (01) | LOC: RAD 09:21 | PROVIDERS: ATTEND Internal Medicine Critical Care Medicine | DX: R06.00 Dyspnea, unspecified (principal); I77.810 Thoracic aortic ectasia | CPT/HCPCS: 71046 ==